=== PATIENT | female | born 1990 ===

== ENCOUNTER 2020-12-21 08:41 | Day surgery (SDC) | payer OTHER ==
[2020-12-21] MEDS ORDERED: PERCOCET 5-3251 EACH PO (12:04)
[2020-12-21] MEDS ORDERED: DERMOPLAST PAIN78 GM TOP (12:05)
[2020-12-21] MEDS ORDERED: RECTICARE30 GM TOP (12:05)
== END 2020-12-21 18:10 | disposition home or self-care (01) ==
LOC: CIR.AMB 08:41
PROVIDERS: ATTEND Surgery
DX: K64.4 Residual hemorrhoidal skin tags (principal); K64.8 Other hemorrhoids; Z20.822 Contact with and (suspected) exposure to COVID-19